=== PATIENT | male | born 1960 | race Caucasian/White ===

== ENCOUNTER → 2018-11-01 | Outpatient (CLI) | payer BC ==
--- NOTE | 2018-11-01 16:10 | CTL ---
EXAMINATION TYPE: CT Low Dose Lung DATE OF EXAM ORDERED: 11/01/2018 HISTORY: . Lung cancer screening CT DLP: 81.[address] CTDI: 2.4 mGy Automated exposure control for dose reduction was used. SCREENING VISIT: Initial COMPARISON: PET/CT 02/08/2011 TECHNIQUE: Low dose computed tomography scan was performed through the chest at 1 mm thick sections a nd reconstructed images in the coronal plane at [address] DIAGNOSTIC QUALITY: Satisfactory FINDINGS: LUNG NODULES: Present, detailed below: There is some stranding opacity in the right lower lobe. Correlate with location of the patient's [place] or nodule. This could be related to prior surgery. Scarring from prior infection could be considered. Short-term monitoring of this area is recommended LUNGS: COPD: Severity: None Fibrosis: Severity: None Lymph nodes: None Other findings: None RIGHT PLEURAL SPACE: Effusion: None Calcification: None Thickening: None Pneumothorax: None LEFT PLEURAL SPACE: Effusion: None Calcification: None Thickening: None Pneumothorax: None HEART: Heart Size: Normal Coronary calcification: Minimal Pericardial effusion: None OTHER FINDINGS: Upper abdomen: Normal Bony thorax: Normal Supraclavicular region: Normal Other: Ascending thoracic aorta at the level the main pulmonary artery measures 3.3 cm. The main pul monary artery at the bifurcation measures 2.6 cm. IMPRESSION: 1. Stranding in the right lower lobe. Scarring could be within the differential. Short-term follow-up is recommended FOLLOW UP CT CHEST RECOMMENDATION: Follow-up standard CT chest in [address] LUNG RAD: Lung-Rad 3 Probably Benign
== END | disposition home or self-care (01) ==
LOC: RADCTMAIN 15:27
PROVIDERS: ATTEND Family Medicine
DX: Z12.2 Encounter for screening for malignant neoplasm of respiratory organs (principal); Z87.891 Personal history of nicotine dependence

== ENCOUNTER 2019-01-17 07:39 | Day surgery (SDC) | payer BC ==
[2019-01-13 17:03] VITALS: BMI 32.5
[~2019-01-17 07:39] MED LIST: LACTATED RINGERS 1,000 ML IV SCH
[2019-01-17 08:08] VITALS: RESP 16; TEMP 97.9
[2019-01-17] MEDS ORDERED: LIDOCAINE 1% 20 ML VIAL (10MG/ML) FOR IV START INTRADERMA ONE (08:10)
[2019-01-17] MEDS ORDERED: PROPOFOL 10 MG/ML 20 ML VIAL IV ONE (08:50)
--- NOTE | 2019-01-17 09:03 | P.GSHP ---
History of Present Illness H&P Date: 01/17/19 Chief Complaint: History of colon polyps This a 58-year-old male who presents today for colonoscopy. Patient has a history of colon polyps. Past Medical History Past Medical History: Hyperlipidemia, Hypertension, Musculoskeletal Disorder, Osteoarthritis (OA) Additional Past Medical History / Comment(s): joint pain History of Any Multi-Drug Resistant Organisms: None Reported Past Surgical History: Orthopedic Surgery Additional Past Surgical History / Comment(s): laparoscopic surgery for heartburn per spouse, thumb tendon repaired, colonoscopy Past Anesthesia/Blood Transfusion Reactions: No Reported Reaction Smoking Status: Former smoker Medications and Allergies Home Medications Medication Instructions Recorded Confirmed Type Naproxen 500 mg PO Q12HR PRN 09/07/14 01/17/19 History Lisinopril-Hctz 10-12.5 mg 1 tab PO DAILY 01/13/19 01/17/19 History [Zestoretic 10-12.5] Meloxicam 15 mg PO DAILY 01/13/19 01/17/19 History Pravastatin Sodium [Pravachol] 40 mg PO HS 01/13/19 01/17/19 History Ranitidine HCl 300 mg PO HS 01/13/19 01/17/19 History Allergies Allergy/AdvReac Type Severity Reaction Status Date / Time No Known Allergies Allergy Verified 01/17/19 08:01 Surgical - Exam Vital Signs Temp Pulse Resp BP Pulse Ox 97.9 F 74 16 132/72 96 01/17/19 08:07 01/17/19 08:07 01/17/19 08:07 01/17/19 08:07 01/17/19 08:07 - General well developed, well nourished, no distress - Eyes PERRL - ENT normal pinna - Neck no masses - Respiratory normal expansion - Cardiovascular Rhythm: regular - Abdomen Abdomen: soft, non tender Assessment and Plan Assessment: History of colon polyps. We'll perform colonoscopy.
--- NOTE | 2019-01-17 09:20 | P.OP ---
Date of Procedure: 01/17/19 Preoperative Diagnosis: History of colon polyps Postoperative Diagnosis: Right colon polyp Diverticulosis Procedure(s) Performed: Colonoscopy Anesthesia: MAC Surgeon: Donis Lee Pathology: other (Right colon polyp) Condition: stable Disposition: PACU Description of Procedure: The patient's placed on the endoscopy table in the lateral position. He received IV sedation. Digital rectal exam was performed which revealed no abnormalities. The flexible colonoscope was then placed patient anus and passed throughout the entire colon. The ileocecal valve was visualized. The cecum appeared normal. In the ascending colon was a small sessile polyp this removed with the cold forcep. Scope withdrawn the remainder of the ascending colon and transverse colon appeared normal. In the descending colon was a few scattered diverticula. Scope was then brought back the rectum and this appeared normal. Scope withdrawn for patient.
[2019-01-17 09:24] VITALS: PULSE 68
[2019-01-17 09:36] VITALS: BP 115/76
== END 2019-01-17 10:12 | disposition home or self-care (01) ==
LOC: ORWHC2ENDO 07:39
PROVIDERS: ATTEND Surgery
DX: Z12.11 Encounter for screening for malignant neoplasm of colon (principal); D12.3 Benign neoplasm of transverse colon; K57.30 Diverticulosis of large intestine without perforation or abscess without bleeding; Z86.010 Personal history of colon polyps; K21.9 Gastro-esophageal reflux disease without esophagitis; I10 Essential (primary) hypertension; E78.5 Hyperlipidemia, unspecified; M19.90 Unspecified osteoarthritis, unspecified site; Z79.1 Long term (current) use of non-steroidal anti-inflammatories (NSAID); Z79.899 Other long term (current) drug therapy; Z87.891 Personal history of nicotine dependence
CPT/HCPCS: 88305; 45380; J2704

== ENCOUNTER → 2020-10-03 | Outpatient (CLI) | payer OTHER ==
--- NOTE | 2020-10-03 08:13 | CT ---
EXAMINATION TYPE: CT chest wo con DATE OF EXAM: 10/03/2020 COMPARISON: 11/01/2018 HISTORY: follow up to prior abn CT CT DLP: [address] of the chest was performed with lung and mediastinal window settings submitted. The la ck of contrast limits evaluation of the vascular, mediastinal and parenchymal structures including th e upper abdomen. LUNGS: The lungs are clear and free of infiltrate. Linear parenchymal scarring redemonstrated right l ower lobe. The remainder of the lungs are clear. No pulmonary nodule or mass is detected. No pleural effusion. No CT evidence of interstitial lung disease. MEDIASTINUM/YOLANDE: Thoracic aorta is of normal caliber with limited evaluation given lack of contrast . The heart is not enlarged. No evidence for mediastinal mass. No lymph nodes greater than 1cm. UPPER ABDOMEN: Hepatic steatosis with mild hepatomegaly suggested. OTHER: No significant other abnormality. IMPRESSION: 1. Linear parenchymal scarring redemonstrated right lower lobe. The remainder of the lungs are clear .
== END | disposition home or self-care (01) ==
LOC: RADCTMAIN 07:38
PROVIDERS: ATTEND Family Medicine
DX: J98.4 Other disorders of lung (principal)
CPT/HCPCS: 71250

== ENCOUNTER 2021-02-21 08:15 | Day surgery (SDC) | payer OTHER ==
[~2021-02-21 08:15] MED LIST changes: +LIDOCAINE 1% (10MG/ML) FOR IV START INTRADERMA PRN
[2021-02-21 08:57] VITALS: TEMP 97.7
[2021-02-21] MEDS ORDERED: LACTATED RINGERS 1,000 ML IV ONE (08:57)
[2021-02-21] MEDS ORDERED: PROPOFOL 10 MG/ML 20 ML VIAL IV ONE (09:45)
--- NOTE | 2021-02-21 09:46 | P.GSHP ---
History of Present Illness H&P Date: 02/21/21 Chief Complaint: History of colon polyps This a 60-year-old male who presents today for colonoscopy. Patient. History of colon polyps. Past Medical History Past Medical History: COPD, GERD/Reflux, Hyperlipidemia, Hypertension, Muscul oskeletal Disorder, Osteoarthritis (OA) Additional Past Medical History / Comment(s): joint pain History of Any Multi-Drug Resistant Organisms: None Reported Past Surgical History: Orthopedic Surgery Additional Past Surgical History / Comment(s): laparoscopic surgery for heartburn per spouse, thumb tendon repaired, colonoscopy Past Anesthesia/Blood Transfusion Reactions: No Reported Reaction Past Psychological History: No Psychological Hx Reported Smoking Status: Former smoker Past Alcohol Use History: Occasional Additional Past Alcohol Use History / Comment(s): quit smoking 5 yrs. ago, smoked for "years" per spouse Past Drug Use History: None Reported Medications and Allergies Home Medications Medication Instructions Recorded Confirmed Type Naproxen 500 mg PO Q12HR PRN 09/07/14 02/18/21 History Meloxicam 15 mg PO QAM 01/13/19 02/18/21 History Pravastatin Sodium [Pravachol] 40 mg PO QAM 01/13/19 02/18/21 History Famotidine 40 mg PO QAM 02/18/21 02/18/21 History amLODIPine [Norvasc] 5 mg PO QAM 02/18/21 02/18/21 History Allergies Allergy/AdvReac Type Severity Reaction Status Date / Time No Known Allergies Allergy Verified 02/18/21 09:32 Surgical - Exam Vital Signs Temp Pulse Resp BP Pulse Ox 97.7 F 68 18 147/67 98 02/21/21 08:56 02/21/21 08:56 02/21/21 08:56 02/21/21 08:56 02/21/21 08:56 - General well developed, well nourished, no distress - Eyes PERRL - ENT normal pinna - Neck no masses - Respiratory normal expansion - Cardiovascular Rhythm: regular - Abdomen Abdomen: soft, non tender Assessment and Plan Assessment: History of colon polyps. We'll perform colonoscopy
--- NOTE | 2021-02-21 10:01 | P.OP ---
Date of Procedure: 02/21/21 Preoperative Diagnosis: History of colon polyps Postoperative Diagnosis: Normal colon Procedure(s) Performed: Colonoscopy Anesthesia: MAC Surgeon: Donis Lee Pathology: none sent Condition: stable Disposition: PACU Description of Procedure: PROCEDURE: The patient was placed on the endoscopy table in the lateral position. Digital rectal examination was performed which revealed no abnormalities. The prostate was symmetrical without nodules. Flexible colonoscope was then placed in the patient's anus and passed throughout the entire colon. The ileocecal valve was visualized. The cecum, ascending, transverse, descending and sigmoid colon were normal. The rectum was normal as well. There were no masses, polyps or diverticula noted in the entire colon. SUMMARY OF FINDINGS: Normal colonoscopy.
[2021-02-21 10:06] VITALS: RESP 16
[2021-02-21 10:27] VITALS: BP 160/82; PULSE 60
== END 2021-02-21 10:32 | disposition home or self-care (01) ==
LOC: ORWHC2ENDO 08:15
PROVIDERS: ATTEND Surgery
DX: Z12.11 Encounter for screening for malignant neoplasm of colon (principal); Z86.010 Personal history of colon polyps; J44.9 Chronic obstructive pulmonary disease, unspecified; K21.9 Gastro-esophageal reflux disease without esophagitis; E78.5 Hyperlipidemia, unspecified; I10 Essential (primary) hypertension; M19.90 Unspecified osteoarthritis, unspecified site; Z98.890 Other specified postprocedural states; Z87.891 Personal history of nicotine dependence; Z79.1 Long term (current) use of non-steroidal anti-inflammatories (NSAID); Z79.899 Other long term (current) drug therapy
CPT/HCPCS: J2704; G0105; 45378

== ENCOUNTER → 2022-11-10 | Outpatient (CLI) | payer BC ==
--- NOTE | 2022-11-11 09:26 | CTL ---
EXAMINATION TYPE: CT Low Dose Lung DATE OF EXAM ORDERED: 11/10/2022 HISTORY: . Lung cancer screening CT DLP: 140.[address] CTDI: 4.0 mGy Automated exposure control for dose reduction was used. SCREENING VISIT: COMPARISON: 11/01/2018, 10/03/2020 TECHNIQUE: Low dose computed tomography scan was performed through the chest at 1 mm thick sections a nd reconstructed images in multiple planes at 1 mm and [address] DIAGNOSTIC QUALITY: Satisfactory FINDINGS: Emphysematous changes are noted central lobular pattern. Biapical minimal pleural scarring. Subpleural 1 mm biapical nodule has a benign appearance. There are subsegmental scarring or atelectas is at the right lung base. No focal pneumonia. No there is no pleural effusion or pneumothorax. Aorta normal caliber. Heart mildly prominent in size with calcification in the aortic valve. Aorta no rmal caliber. Assessment for adenopathy limited by noncontrast technique. No gross pathologic The liver is enlarged and low in attenuation correlate for hepatocellular disease\metastatic ptosis. Cholelithiasis small hiatal hernia noted. There is hypertrophic and degenerative changes of the spine multilevel severe degenerative disc disease. IMPRESSION: 1. COPD with chronic basilar atelectasis or scarring and no suspicious appearing pulmonary nodules. S ubpleural micronodules benign appearance. 2. Hepatomegaly with findings suggesting stenosis 3. Cholelithiasis. CT LUNG RAD AND CT CHEST RECOMMENDATION: Lung-Rad 2 Benign Appearance or Behavior: Continue annual sc reening with LDCT in 12 months.
== END | disposition home or self-care (01) ==
LOC: RADCTMAIN 18:16
PROVIDERS: ATTEND Family Medicine
DX: Z12.2 Encounter for screening for malignant neoplasm of respiratory organs (principal); J44.9 Chronic obstructive pulmonary disease, unspecified; K80.20 Calculus of gallbladder without cholecystitis without obstruction; J98.11 Atelectasis; R16.0 Hepatomegaly, not elsewhere classified; F17.210 Nicotine dependence, cigarettes, uncomplicated
CPT/HCPCS: 71271

== ENCOUNTER → 2024-01-27 | Outpatient (CLI) | payer BC ==
--- NOTE | 2024-01-27 19:37 | CTL ---
EXAMINATION TYPE: CT Low Dose Lung DATE OF EXAM: 01/27/2024 7:07 PM COMPARISON: None. CLINICAL INDICATION: Male, 63 years old with history of Z12.2ENCNTR SCREEN FOR MALIGNANT NEOPLASM, Z8 7.891 PRIOR SMO; former smoker, quit 8 years ago. 1 pack a day x45 years, history of tobacco use. TECHNIQUE: Multiple axial non-contrast scans were obtained from approximately the lung apices through the upper abdomen. Coronal and sagittal reformatted images were obtained. Low dose technique was uti lized. MIP were created on a separate workstation and submitted for review. CT DLP: 98.6 mGycm, Automated exposure control for dose reduction was used. CT Contrast: Contrast used: None Oral contrast used: None FINDINGS: Lack of intravenous contrast and low dose technique limits the evaluation of the vascular and soft ti ssue structures. LUNGS: No evidence of pulmonary fibrosis. No evidence of focal consolidation, pneumothorax or pleural effusion. Centrilobular emphysema changes. Streaky atelectasis in the right lung base. Nodules: RUL: None. RML: None. RLL: None. CELIA: None. LLL: None. AIRWAY: Patent and unremarkable. HEART: Size within normal limits. MEDIASTINUM: No gross evidence of adenopathy. VASCULATURE: No aortic aneurysm. MUSCULOSKELETAL: No acute osseous abnormalities SOFT TISSUES/LYMPH NODES: Unremarkable. LOWER NECK: No significant findings. UPPER ABDOMEN: Diffuse low-attenuation to the liver parenchyma. IMPRESSION: 1. No clinically significant pulmonary nodules. 2. Mild emphysema. 3. Hepatic steatosis. CT LUNG RAD AND CT CHEST RECOMMENDATION: Lung-Rad 1 Negative: Continue annual screening with LDCT in 12 months. S Modifier (other clinically significant findings): None Recommend smoking cessation (if current smoker), or continuation of smoking cessation (if prior smoke r). Annual screening for lung cancer with low-dose computed tomography is recommended in adults ages 55 to 77 years who have a 30 pack-year smoking history and currently smoke or have quit within the pa st 15 years. Screening should be discontinued once a person has not smoked for 15 years or develops a health problem that substantially limits life expectancy or the ability or willingness to have curat doug lung surgery. Lung rads 2021 [email or web address] [facility], , 01/27/2024 7:35 PM
== END | disposition home or self-care (01) ==
LOC: RADCTMAIN 18:39
PROVIDERS: ATTEND Family Medicine
DX: Z12.2 Encounter for screening for malignant neoplasm of respiratory organs (principal); J43.9 Emphysema, unspecified; J43.2 Centrilobular emphysema; K76.0 Fatty (change of) liver, not elsewhere classified; Z87.891 Personal history of nicotine dependence
CPT/HCPCS: 71271